=== PATIENT | female | born 1930 | race Caucasian/White ===

== ENCOUNTER → 2018-01-16 | Outpatient (CLI) | payer MEDICARE, BC, MEDICAID ==
[~2018-01-16] MED LIST: APAP500 PO; ATIVAN0.5 MG PO; AUGMENTIN 875875 MG PO; BACTRIM DS TAB1 EACH PO; BAYER CHEWABLE81 MG PO; CLARITIN10 MG PO; CYMBALTA30 MG PO; ENOXAPARIN40 MG/0.1 SUBQ; KLOR-CON 1010 MEQ PO; LANOXIN 0.120.125 M1 PO; LASIX 40 MG TAB40 M2 PO; LEVOTHYROXINE 0.1 MG PO; MILK OF MA2400 MG/10 PO; NYAMYC15 GM TOP; POTASSIUM20 PO; SENNA8.6 MG PO; STALEVO 200 TA1 EACH PO; [UNRECOGNIZED DRUG - OTHER] TOP
== END ==
LOC: M.CT 10:42
DX: J98.11 Atelectasis (principal); R91.8 Other nonspecific abnormal finding of lung field